=== PATIENT | female | born 1985 | race African-American/Black ===

== ENCOUNTER 2024-03-21 19:37 | Emergency (ER) | payer SELFPAY ==
[2024-03-21 19:52] VITALS: BP 192/117; PULSE 74; RESP 16; TEMP 36.8; O2SAT 99; BMI 158.6
--- NOTE | 2024-03-21 20:02 | CRLHL7_ITS ---
For Patients: As a result of the Cures Act, medical imaging exams and procedure reports are released immediately into your electronic medical record. You may view this report before your referring provider. If you have questions, please contact your health care provider. INDICATION: Spotting. LMP 02/03/2024. COMPARISON: None. TECHNIQUE: Real-time huizar-scale imaging of the pelvis was performed. FINDINGS: Sonographic imaging demonstrates a single living intrauterine gestation. The embryo has a regular cardiac rate measuring 120 beats per minute. The embryo`s crown-rump length measures 0.6 cm which corresponds to a gestational age of 6 weeks 2 days with sonographic due date 11/12/2024. There is a normal-appearing yolk sac. The placenta has not yet developed. There is a 1.6 x 0.9 x 0.9 cm subchorionic hemorrhage in the right upper uterus. The uterus measures 11.5 x 7.2 x 7.4 cm. The cervix is closed. The right ovary was not visualized. The left ovary measures 3.3 x 2.3 x 2.6 cm. No free fluid in the pelvic cul-de-sac. IMPRESSION: 1. Single living intrauterine gestation corresponding to an ultrasound gestational age of 6 weeks 2 days with sonographic due date 11/12/2024. 2. The clinical gestational age by LMP is 6 weeks 5 days. 3. Small subchorionic hemorrhage. Dictated by Indy Dominguez MD @ 03/21/2024 10:25:30 PM (Electronically Signed)
[2024-03-21 20:09] VITALS: BP 164/100; PULSE 70; RESP 16; O2SAT 100
[2024-03-21 20:16] LABS: Appearance Urine Clear (Clear); Bilirubin Urine Negative (Negative); Blood Urine Negative (Negative); Color Urine Yellow (Yellow); Glucose Urine Negative (Negative); Ketones Urine Negative (Negative); Leukocyte Esterase Urine Negative (Negative); Nitrite Urine Negative (Negative); Protein Urine Negative (Negative); Specific Gravity Urine 1.015 (1.000-1.030); Urobilinogen Urine 0.2 (0.2-1.0)
--- NOTE | 2024-03-21 20:23 | ED.GENADULT ---
HPI - General Adult General Date Seen: 03/21/24 Chief complaint: Vaginal Bleeding Stated complaint: less than 2 mos , bleeding, cramping Time Seen by Provider: 03/21/24 19:52 Source: patient Mode of arrival: ambulatory Limitations: no limitations History of Present Illness HPI narrative: Patient is a 39-year-old woman here with her for evaluation of spotting during . She says she has an LMP of February 02, she is a with history of 1 miscarriage, denies other complications. Her prior pregnancies have been in [facility], she immigrated here to join her a couple of months ago. She has not yet had any care for this but plans to come here to [place], her works here. She noted some spotting today, she has not had significant cramping. She says she has noticed some blood with wiping. No heavier bleeding. No urinary symptoms. Related Data Allergies Allergy/AdvReac Type Severity Reaction Status Date / Time No Known Drug Allergies Allergy Verified 03/21/24 19:58 Review of Systems Status of ROS: Reports: 6 or more systems reviewed and unremarkable except as noted in History and below [facility] Social History Do you use any of these nicotine containing products: None How often do you have a drink containing alcohol: never AUDIT-C Alcohol total score: 0 Non-prescribed substance use: denies use Exam Narrative: Exam Narrative: Vital signs reviewed In general, alert, nontoxic Head: Normocephalic, atraumatic. Eyes: Sclera clear. Pupils equal and reactive. ENT: Mucous membranes moist. Neck: Supple without adenopathy. Heart: Regular rate and rhythm without murmur. Lungs: Clear. No increased work of breathing, crackles or wheezes. Abdomen: Soft, nontender to palpation. Extremities: Well perfused, pulses intact. No significant edema. Neurologic: Alert, conversant. Speech fluent, face symmetric. Moves all extremities equally. Skin: Warm, dry well perfused. Affect: Normal. Const: Vital Signs, click to edit/add: Vital Signs - 24 hr 03/21/24 19:52 03/21/24 20:09 03/21/24 21:16 Temperature 98.3 F Pulse Rate [Right Pulse Oximeter] 74 70 70 Respiratory Rate 16 16 Blood Pressure [Ri ght Upper Arm] 192/117 H 164/100 H 150/90 H Pulse Oximetry 99 100 Oxygen Delivery Me thod Room Air Room Air Documenting provider has reviewed patient's vital signs: yes Course Course ED Course: CBC, quant HCG and type and screen is ordered. UA pending as well. Will do a pelvic ultrasound and evaluate to determine whether she has an intrauterine . Other considerations would be threatened or inevitable miscarriage, ectopic , molar , urinary tract infection. Labs are notable for a blood type of A positive, normal hemoglobin, a negative UA. Quantitative hCG is still pending, but she did have an ultrasound which is read preliminarily to show an IUP with good cardiac activity, and a small subchorionic hemorrhage. Her blood pressure remained somewhat elevated, 150/90, she does have a history of hypertension and is maintained on amlodipine. Her says that is not normally this high. For now I recommend that she continue her amlodipine but this should be followed at clinic to see if medication needs to be adjusted. Quant HCG 34,000, final radiology read concurs with the preliminary read. Patient discharged with outpatient follow-up, return for heavier bleeding, worsening abdominal pain, fevers or other new symptoms. Vital Signs Vital signs: Initial Vital Signs Temperature 98.3 F 03/21/24 19:52 Temperature Source Temporal Artery Scan 03/21/24 19:52 Pulse Rate 74 03/21/24 19:52 Pulse Rhythm Regular 03/21/24 19:52 Pulse Strength 3+ Normal 03/21/24 19:52 Respiratory Rate 16 03/21/24 19:52 Blood Pressure 192/117 H 03/21/24 19:52 Blood Pressure Mean 142 H 03/21/24 19:52 Blood Pressure Position Sitting 03/21/24 19:52 Pulse Oximetry 99 03/21/24 19:52 Oxygen Delivery Method Room Air 03/21/24 19:52 Vital Signs Temperature 98.3 F 03/21/24 19:52 Pulse Rate 74 03/21/24 19:52 Respiratory Rate 16 03/21/24 19:52 Blood Pressure 192/117 H 03/21/24 19:52 Pulse Oximetry 99 03/21/24 19:52 Oxygen Delivery Method Room Air 03/21/24 19:52 Temperature 98.3 F 03/21/24 19:52 Pulse Rate 70 03/21/24 21:16 Respiratory Rate 16 03/21/24 20:09 Blood Pressure 150/90 H 03/21/24 21:16 Pulse Oximetry 100 03/21/24 20:09 Oxygen Delivery Method Room Air 03/21/24 20:09 Medical Decision Making Lab Data Labs: Lab Results 03/21/24 03/21/24 Range/Units 19:58 20:18 WBC 5.22 (4.50-11.00) K/uL RBC 4.79 (4.00-5.20) m/uL Hgb 12.4 (12.0-16.0) gm/dL Hct 39.3 (33.0-51.0) % MCV 82 (80-100) fL MCH 26 (26-34) pg MCHC 32 (32-36) gm/dL RDW Coeff of Kumar 14.6 (11.5-15.5) % Plt Count 185 (140-440) K/uL Neut % (Auto) 40.7 L (42.0-72.0) % Lymph % (Auto) 45.4 H (20-44) % Randall % (Auto) 12.1 H (0.0-11.0) % Eos % (Auto) 1.0 (0.0-7.0) % Baso % (Auto) 0.6 (0.0-3.0) % Neut # (Auto) 2.10 (1.7-7.0) K/uL Lymph # (Auto) 2.40 (0.90-2.90) K/uL Randall # (Auto) 0.60 (0.00-0.90) K/UL Eos # (Auto) 0.05 (0.00-0.50) K/uL Baso # (Auto) 0.03 (0.00-0.30) K/uL Abs Immat Gran (auto) 0.01 (0.00-0.30) K/uL Imm/Tot Granulo (auto) 0.2 % HCG, Quant 27085.00 mIU/mL Urine Color Yellow (Yellow) Urine Appearance Clear (Clear) Urine pH 7.0 (5.0-8.5) Ur Specific [place] 1.015 (1.000-1.030) Urine Protein Negative (Negative) Urine Glucose (UA) Negative (Negative) Urine Ketones Negative (Negative) Urine Blood Negative (Negative) Urine Nitrite Negative (Negative) Urine Bilirubin Negative (Negative) Urine Urobilinogen 0.2 (0.2-1.0) Ur Leukocyte Esterase Negative (Negative) Urine RBC 0-2 (0-2) Urine WBC 0-2 (0-5) Ur Squamous Epith Cells None (None-Few) Urine Bacteria None (None) Blood Type A Positive Antibody Screen NEGATIVE Imaging Data Transvaginal ultrasound: Attestation: I have reviewed the pertinent imaging results. Radiologist's impression: [address] [address] Diagnostic Imaging Report Patient: Diana Shelton MR#: [id number] : 1985 Acct:[id number] Loc: ED Service Date: 03/21/[address]: Ordering Physician: Naomi Dumont M.D. Date of Service: 03/21/24 Procedure(s): US OB transvaginal Accession Number(s): [id number] cc: Naomi Dumont M.D.; Provider,Not a Local~ For Patients: As a result of the Cures Act, medical imaging exams and procedure reports are released immediately into your electronic medical record. You may view this report before your referring provider. If you have questions, please contact your health care provider. INDICATION: Spotting. LMP 02/03/2024. COMPARISON: None. TECHNIQUE: Real-time huizar-scale imaging of the pelvis was performed. FINDINGS: Sonographic imaging demonstrates a single living intrauterine gestation. The embryo has a regular cardiac rate measuring 120 beats per minute. The embryo`s crown-rump length measures 0.6 cm which corresponds to a gestational age of 6 weeks 2 days with sonographic due date 11/12/2024. There is a normal-appearing yolk sac. The placenta has not yet developed. There is a 1.6 x 0.9 x 0.9 cm subchorionic hemorrhage in the right upper uterus. The uterus measures 11.5 x 7.2 x 7.4 cm. The cervix is closed. The right ovary was not visualized. The left ovary measures 3.3 x 2.3 x 2.6 cm. No free fluid in the pelvic cul-de-sac. IMPRESSION: 1. Single living intrauterine gestation corresponding to an ultrasound gestational age of 6 weeks 2 days with sonographic due date 11/12/2024. 2. The clinical gestational age by LMP is 6 weeks 5 days. 3. Small subchorionic hemorrhage. Dictated by Indy Dominguez MD @ 03/21/2024 10:25:30 PM Discharge Plan Discharge Clinical Impression: Bleeding in early Patient Disposition: Home, Self-Care Condition: Stable Instructions: Subchorionic Hemorrhage (ED) Additional Instructions: Your ultrasound is normal for this stage of . I would recommend that you follow-up in [facility] next week for recheck. Return any time for heavy bleeding, significant abdominal pain or other worsening symptoms. Your blood pressure is elevated here tonight, for now continue your amlodipine, recheck in clinic next week. [phone] to schedule. Activity Level: No Restrictions Discharge Diet: Regular Follow Up/Referrals: Provider,Not a Local [Primary Care Provider] - Stand Alone Forms: [employer] Info Instructions
[2024-03-21 20:27] LABS: Basophils Absolute Auto 0.03 K/uL (0.00-0.30); Basophils Percent Auto 0.6 % (0.0-3.0); Eosinophils Absolute Auto 0.05 K/uL (0.00-0.50); Hematocrit 39.3 % (33.0-51.0); Hemoglobin* 12.4 gm/dL (12.0-16.0); Immature Granulocytes Abs Auto 0.01 K/uL (0.00-0.30); Immature Granulocytes Pct Auto 0.2 %; Lymphocytes Percent Auto 45.4 % (20-44); Mean Corpuscular HGB Conc 32 gm/dL (32-36); Mean Corpuscular Hemoglobin 26 pg (26-34); Mean Corpuscular Volume 82 fL (80-100); Monocytes Percent Auto 12.1 % (0.0-11.0); Neutrophils Percent Auto 40.7 % (42.0-72.0); Platelet Count* 185 K/uL (140-440); RDW Coefficient of Variation % 14.6 % (11.5-15.5); Red Blood Count 4.79 m/uL (4.00-5.20); White Blood Count* 5.22 K/uL (4.50-11.00)
[2024-03-21 20:35] LABS: RBC Urine 0-2 (0-2); WBC Urine 0-2 (0-5)
[2024-03-21 20:41] LABS: Slide Review Reflex No
[2024-03-21 21:16] VITALS: BP 150/90; PULSE 70
== END 2024-03-21 21:33 | disposition home or self-care (01) ==
PROVIDERS: Emergency Provider Emergency Medicine
DX: O20.9 Hemorrhage in early pregnancy, unspecified (principal)
CPT/HCPCS: 36415; 76817; 81001; 84702; 85025; 86850; 86900; 86901; 99283; 99284

== ENCOUNTER 2024-05-03 07:10 | Outpatient (CLI) | payer OTHER, SELFPAY ==
--- NOTE | 2024-05-03 07:15 | CRLHL7_ITS ---
For Patients: As a result of the Century Cures Act, medical imaging exams and procedure reports are released immediately into your electronic medical record. You may view this report before your referring provider. If you have questions, please contact your health care provider. INDICATION: Follow-up viability COMPARISON: 03/21/2024 TECHNIQUE: Real-time huizar-scale imaging of the pelvis was performed. FINDINGS: Sonographic imaging demonstrates a single living intrauterine gestation. The embryo demonstrates a regular cardiac rate measuring 157 beats per minute. The embryo`s crown-rump length measurement of 7.2 cm corresponds to a gestational age of 13 weeks 2 days with a sonographic due date of 11/06/2024. The yolk sac is not visualized. There are no gross abnormalities noted within the embryo at this early state of development. The gestational sac has a normal appearance. There is no evidence of a perigestational hemorrhage. The amount of fluid within the sac appears appropriate for gestational age. The cervix is closed. The myometrium appears normal. Simple cyst right ovary measures 4.8 x 4.2 x 4.9 cm. Normal left ovary. There are no suspicious fluid collections noted in the cul-de-sac. IMPRESSION: Single living intrauterine measuring 13 weeks 2 days and sonographic due date 11/06/2024. Simple right ovarian cyst measures 4.8 x 4.2 x 4.9 cm. Dictated by Harvey Hoover MD @ 05/03/2024 1:23:47 PM (Electronically Signed)
== END 2024-05-03 07:11 | disposition home or self-care (01) ==
LOC: US 07:12
PROVIDERS: Visit Provider Advanced Practice Midwife
DX: Z34.91 Encounter for supervision of normal pregnancy, unspecified, first trimester (principal); O34.81 Maternal care for other abnormalities of pelvic organs, first trimester; N83.291 Other ovarian cyst, right side; Z3A.13 13 weeks gestation of pregnancy
CPT/HCPCS: 76801; 82565; 82570; 83021; 84156; 84450; 84460; 84520; 84550; 86592; 86703; 86704; 86706; 86762; 86787; 86803; 86850; 86900; 86901; 87086; 87340; 87491; 87591; 87624; 88142

== ENCOUNTER 2024-05-03 08:21 | Outpatient (CLI) | payer OTHER, SELFPAY ==
[2024-05-03 15:30] LABS: Chlamydia DNA Amplified* NOT DETECTED (No Detected); GC DNA Amplified* NOT DETECTED (No Detected)
[2024-05-05 09:20] LABS: HPV Source Cervical; HPV, High Risk by TMA Not Detected
== END 2024-05-03 08:22 | disposition home or self-care (01) ==
PROVIDERS: Visit Provider Advanced Practice Midwife
DX: O09.521 Supervision of elderly multigravida, first trimester (principal); O10.911 Unspecified pre-existing hypertension complicating pregnancy, first trimester; Z3A.12 12 weeks gestation of pregnancy; Z12.4 Encounter for screening for malignant neoplasm of cervix
CPT/HCPCS: 82565; 82570; 83020; 83021; 84156; 84450; 84460; 84520; 84550; 85660; 86592; 86703; 86704; 86706; 86762; 86787; 86803; 86850; 86900; 86901; 87086; 87340; 87491; 87591; 87624; 87625; 88141; 88142

== ENCOUNTER 2024-05-05 10:49 | Outpatient (CLI) | payer OTHER, SELFPAY | END 2024-05-05 10:50 | disposition home or self-care (01) | LOC: NFLDREF 05-14 16:23 | PROVIDERS: Visit Provider Advanced Practice Midwife | DX: O09.522 Supervision of elderly multigravida, second trimester (principal) | CPT/HCPCS: 82570; 84156 ==

== ENCOUNTER 2024-06-14 10:50 | Outpatient (CLI) | payer OTHER, SELFPAY | END 2024-06-14 10:51 | disposition home or self-care (01) | LOC: US 10:52 | PROVIDERS: Visit Provider Advanced Practice Midwife | DX: O10.912 Unspecified pre-existing hypertension complicating pregnancy, second trimester (principal); O09.522 Supervision of elderly multigravida, second trimester; Z3A.18 18 weeks gestation of pregnancy | CPT/HCPCS: 76811 ==

== ENCOUNTER 2024-08-23 08:12 | Outpatient (CLI) | payer OTHER, SELFPAY | END 2024-08-23 08:13 | disposition home or self-care (01) | LOC: NFLDREF 08-25 23:51 | PROVIDERS: Visit Provider Obstetrics & Gynecology | DX: O09.523 Supervision of elderly multigravida, third trimester (principal); Z3A.28 28 weeks gestation of pregnancy | CPT/HCPCS: 86592; 86850 ==

== ENCOUNTER 2024-08-23 08:40 | Outpatient (CLI) | payer OTHER, SELFPAY ==
--- NOTE | 2024-08-23 08:15 | CRLHL7_ITS ---
For Patients: As a result of the Cures Act, medical imaging exams and procedure reports are released immediately into your electronic medical record. You may view this report before your referring provider. If you have questions, please contact your health care provider. OBSTETRICAL ULTRASOUND ??? FOLLOW-UP, 08/23/2024 INDICATION: Growth. Advanced maternal age. CLINICAL HISTORY: LMP: 02/03/2024 LUIZ by LMP: 11/09/2024 Gestational Age: 28 weeks 6 days COMPARISON: 06/14/2024, 05/03/2024, 03/21/2024. TECHNIQUE: Real-time huizar-scale transabdominal imaging of the fetus was performed. FINDINGS: Fetus: Single Cervix: Visualized, 3.2 cm positioning: Vertex Amniotic Fluid: 4.5 cm SDP Placenta technique: Transabdominal Placenta position: Posterior heart rate: 141 bpm BIOMETRY: BPD: 7.2 cm, 29 weeks 0 days, 42.7% HC: 27.5 cm, 30 weeks 0 days, 52.2% AC: 25.4 cm, 29 weeks 4 days, 65.4% FL: 5.2 cm, 27 weeks 6 days, 11.4% FL/AC Ratio: 20.6% HC/AC ratio: 1.1 EFW: 1319 grams; 2 lbs. 15 oz. age by this ultrasound: 29 weeks 1 day LUIZ by this ultrasound: 11/07/2024 Percentile by LUIZ: 42.1% IMPRESSION: 1. Sonographic gestational age 29 weeks 1 day and sonographic due date 11/07/2024. Good correlation with dates. Normal interval growth. 2. Estimated weight is 42nd percentile. Abdominal circumference is 65th percentile. HARVEY HUANG M.D. Diagnostic Radiologist [email or web address] Transcribed: 2:[address]/Dictated by: Harvey Huang MD @ 08/23/2024 2:26:00 PM (Electronically Signed)
== END 2024-08-23 08:41 | disposition home or self-care (01) ==
LOC: US 08:41
PROVIDERS: Visit Provider Advanced Practice Midwife
DX: O09.523 Supervision of elderly multigravida, third trimester (principal); O10.913 Unspecified pre-existing hypertension complicating pregnancy, third trimester; Z3A.28 28 weeks gestation of pregnancy
CPT/HCPCS: 76816

== ENCOUNTER 2024-09-20 08:16 | Outpatient (CLI) | payer OTHER, SELFPAY ==
--- NOTE | 2024-09-20 08:15 | CRLHL7_ITS ---
For Patients: As a result of the Cures Act, medical imaging exams and procedure reports are released immediately into your electronic medical record. You may view this report before your referring provider. If you have questions, please contact your health care provider. OB ULTRASOUND LUIZ by LMP: 11/09/2024. GA: 32 w, 6 d. Single. Comparison: 08/23/2024. INDICATION: Pre-existing HTN. TECHNIQUE: Real time grayscale imaging of the fetus was performed. Transabdominal. CERVIX: Not visualized. POSITIONING: Vertex. AMNIOTIC FLUID: 4.2 cm. SDP (N: greater than 2 x 1 cm) BIOPHYSICAL PROFILE: 2: Gross body movements 2: tone 2: Respiratory activity 2: Amniotic fluid SDP (N: greater than 2 x 1 cm) 8/8: Total score PLACENTA: Technique: Transabdominal. PLACENTA POSITION: Posterior. DOPPLER: heart rate: 165 bpm. BIOMETRY: BPD: 8.1 cm. 32 w, 4 d, 35 percent. HC: 31.0 cm. 34 w, 4 d, 60 percent. AC: 28.9 cm. 32 w, 6 d, 52 percent. FL: 5.9 cm. 30 w, 5 d, <3 percent. FL/AC ratio: 20.35 percent. HC/AC ratio: 1.07. EFW: 1965 g. Weight: 4 lbs, 5 oz. age by this US: 32 w, 5 d. LUIZ by this US: 11/10/2024. Percentile by LUIZ: 27 percent. IMPRESSION: 1. Normal biophysical profile score 8/8. 2. Sonographic gestational age 32 weeks 5 days and sonographic due date 11/10/2024. Good correlation with dates. Normal interval growth. 3. Estimated weight 27th percentile. Abdominal circumference 52nd percentile. 4. Femur length less than 3rd percentile. Harvey Hoover M.D. Diagnostic Radiologist [email or web address] WANDA/sanya segundo/Dictated by: Harvey Hoover MD @ 09/20/2024 9:25:00 AM (Electronically Signed)
== END 2024-09-20 08:17 | disposition home or self-care (01) ==
LOC: US 08:17
PROVIDERS: Visit Provider Advanced Practice Midwife
DX: O10.913 Unspecified pre-existing hypertension complicating pregnancy, third trimester (principal); Z3A.32 32 weeks gestation of pregnancy
CPT/HCPCS: 76816; 76819

== ENCOUNTER 2024-09-20 08:57 | Outpatient (CLI) | payer OTHER, SELFPAY | END 2024-09-20 08:58 | disposition home or self-care (01) | LOC: NFLDREF 09:00 | PROVIDERS: Visit Provider Obstetrics & Gynecology | DX: O10.913 Unspecified pre-existing hypertension complicating pregnancy, third trimester (principal); Z3A.32 32 weeks gestation of pregnancy | CPT/HCPCS: 82565; 82570; 84156; 84450; 84460 ==

== ENCOUNTER 2024-09-25 15:00 | Outpatient (CLI) | payer OTHER, SELFPAY | END 2024-09-25 15:01 | disposition home or self-care (01) | LOC: NFLDREF 09-29 04:11 | PROVIDERS: Visit Provider Obstetrics & Gynecology | DX: O10.913 Unspecified pre-existing hypertension complicating pregnancy, third trimester (principal); O99.013 Anemia complicating pregnancy, third trimester; D64.9 Anemia, unspecified; Z3A.33 33 weeks gestation of pregnancy | CPT/HCPCS: 82565; 82570; 82728; 84156; 84450; 84460 ==

== ENCOUNTER 2024-09-27 13:00 | Outpatient (CLI) | payer OTHER, SELFPAY ==
--- NOTE | 2024-09-27 13:00 | CRLHL7_ITS ---
For Patients: As a result of the Century Cures Act, medical imaging exams and procedure reports are released immediately into your electronic medical record. You may view this report before your referring provider. If you have questions, please contact your health care provider. INDICATION: Pre-existing hypertension TECHNIQUE: Ultrasound OB pelvis transabdominal. Real-time huizar-scale imaging of the fetus was performed with color Doppler and spectral Doppler analysis of the umbilical artery without stress testing. COMPARISON: 09/20/2024 FINDINGS: Sonographic imaging demonstrates a single living intrauterine gestation. Fetus demonstrates a regular cardiac rate of 150 beats per minute. Fetus has a cephalic orientation. The placenta lies fundal. Amniotic fluid volume appears normal with a MVP of 4.5 cm. breathing movements, motion, and tone were all observed. IMPRESSION: Single viable intrauterine with a biophysical profile 12/01. Dictated by Naresh Acharya MD @ 09/27/2024 2:11:44 PM (Electronically Signed)
== END 2024-09-27 13:01 | disposition home or self-care (01) ==
LOC: US 13:01
PROVIDERS: Visit Provider Advanced Practice Midwife
DX: O10.919 Unspecified pre-existing hypertension complicating pregnancy, unspecified trimester (principal)
CPT/HCPCS: 76819

== ENCOUNTER 2024-10-04 08:08 | Outpatient (CLI) | payer OTHER, SELFPAY ==
--- NOTE | 2024-10-04 08:15 | CRLHL7_ITS ---
For Patients: As a result of the Century Cures Act, medical imaging exams and procedure reports are released immediately into your electronic medical record. You may view this report before your referring provider. If you have questions, please contact your health care provider. INDICATION: Pre-existing hypertension TECHNIQUE: Ultrasound OB pelvis transabdominal. Real-time huizar-scale imaging of the fetus was performed with color Doppler and spectral Doppler analysis of the umbilical artery without stress testing. COMPARISON: 09/27/2024 FINDINGS: Sonographic imaging demonstrates a single living intrauterine gestation. Fetus demonstrates a regular cardiac rate of 142 beats per minute. Fetus has a fundal orientation. The placenta lies anterior. Amniotic fluid volume appears normal with a MVP of 4.2 cm. breathing movements, motion, and tone were all observed. IMPRESSION: Single viable intrauterine with a biophysical profile 12/01. Dictated by Naresh Acharya MD @ 10/04/2024 9:03:43 AM (Electronically Signed)
== END 2024-10-04 08:09 | disposition home or self-care (01) ==
PROVIDERS: Visit Provider Advanced Practice Midwife
DX: O10.919 Unspecified pre-existing hypertension complicating pregnancy, unspecified trimester (principal)
CPT/HCPCS: 76819

== ENCOUNTER 2024-10-04 08:39 | Outpatient (CLI) | payer OTHER, SELFPAY | END 2024-10-04 08:40 | disposition home or self-care (01) | LOC: NFLDREF 10-05 20:00 | PROVIDERS: Visit Provider Obstetrics & Gynecology | DX: O10.013 Pre-existing essential hypertension complicating pregnancy, third trimester (principal); Z3A.34 34 weeks gestation of pregnancy | CPT/HCPCS: 82565; 82570; 84156; 84450; 84460 ==

== ENCOUNTER 2024-10-11 08:27 | Outpatient (CLI) | payer OTHER, SELFPAY ==
--- NOTE | 2024-10-11 08:15 | CRLHL7_ITS ---
For Patients: As a result of the Cures Act, medical imaging exams and procedure reports are released immediately into your electronic medical record. You may view this report before your referring provider. If you have questions, please contact your health care provider. OB ULTRASOUND LUIZ by LMP: 11/09/2024. GA: 35 w, 6 d. Single. Comparison: 10/04/2024, 09/27/2024, 09/20/2024. INDICATION: Pre-existing HTN. TECHNIQUE: Real time grayscale imaging of the fetus was performed. Transabdominal. CERVIX: Not visualized. POSITIONING: Vertex. AMNIOTIC FLUID: 2.6 cm. SDP (N: greater than 2 x 1 cm) BIOPHYSICAL PROFILE: 2: Gross body movements 2: tone 2: Respiratory activity 2: Amniotic fluid SDP (N: greater than 2 x 1 cm) 8/8: Total score PLACENTA: Technique: Transabdominal. PLACENTA POSITION: Anterior. DOPPLER: heart rate: 141 bpm. IMPRESSION: Normal biophysical profile score 8/8. Harvey Hoover M.D. Diagnostic Radiologist [email or web address] WANDA/sanya segundo/Dictated by: Harvey Hoover MD @ 10/11/2024 9:37:00 AM (Electronically Signed)
== END 2024-10-11 08:28 | disposition home or self-care (01) ==
LOC: US 08:28
PROVIDERS: Visit Provider Advanced Practice Midwife
DX: O10.913 Unspecified pre-existing hypertension complicating pregnancy, third trimester (principal); Z3A.35 35 weeks gestation of pregnancy
CPT/HCPCS: 76819

== ENCOUNTER 2024-10-11 09:41 | Outpatient (CLI) | payer OTHER, SELFPAY ==
[2024-10-12 12:42] LABS: Strep B DNA Probe Negative (Negative)
[2024-10-12 14:03] LABS: Strep B Susceptibility Needed? No
== END 2024-10-11 09:42 | disposition home or self-care (01) ==
LOC: NFLDREF 09:41
PROVIDERS: Visit Provider Obstetrics & Gynecology
DX: Z34.93 Encounter for supervision of normal pregnancy, unspecified, third trimester (principal); Z3A.35 35 weeks gestation of pregnancy
CPT/HCPCS: 82565; 82570; 84156; 84450; 84460; 87081; 87653

== ENCOUNTER 2024-10-17 13:53 | Outpatient (CLI) | payer OTHER, SELFPAY | END 2024-10-17 13:54 | disposition home or self-care (01) | LOC: NFLDREF 10-20 14:13 | PROVIDERS: Visit Provider Obstetrics & Gynecology | DX: O10.913 Unspecified pre-existing hypertension complicating pregnancy, third trimester (principal); Z3A.36 36 weeks gestation of pregnancy | CPT/HCPCS: 82565; 82570; 84156; 84450; 84460 ==

== ENCOUNTER 2024-10-18 13:08 | Outpatient (CLI) | payer OTHER, SELFPAY | END 2024-10-18 13:09 | disposition home or self-care (01) | LOC: NFLDREF 10-23 09:20 | PROVIDERS: Visit Provider Obstetrics & Gynecology | DX: O10.913 Unspecified pre-existing hypertension complicating pregnancy, third trimester (principal); Z3A.36 36 weeks gestation of pregnancy | CPT/HCPCS: 82565; 82570; 84156; 84450; 84460 ==

== ENCOUNTER 2024-10-18 13:11 | Outpatient (CLI) | payer OTHER, SELFPAY ==
--- NOTE | 2024-10-18 13:00 | US_ITS ---
Patient: ABDIAS SHANNON Facility:?[facility] Patient ID:?[id number] Patient ID:?[id number]. Site :?1985 Study:?US-OB Pelvis OB BPP W/ F/U GROWTH-10/18/2024 1:43:26 PM Ordering Physician:Anuja Betancourt Final Report: OBSTETRICAL ULTRASOUND ? FOLLOW-UP, 10/18/2024 INDICATION: Preexisting hypertension. CLINICAL HISTORY: LMP: 02/03/2024 LUIZ by LMP: 11/09/2024 Gestational Age: 36 weeks 6 days PREVIOUS ULTRASOUND: 10/11/2024 TECHNIQUE: Real-time huizar-scale transabdominal imaging of the fetus was performed. FINDINGS: Fetus: Single Cervix: Not visualized positioning: Vertex Amniotic Fluid: 6.1 cm SDP BIOPHYSICAL PROFILE: Gross body movements: 2 tone: 2 Respiratory activity: 2 Amniotic fluid SDP: 2 Total score: 8 Placenta technique: Transabdominal Placenta position: Posterior heart rate: 149 bpm BIOMETRY: BPD: 8.8 cm, 35 weeks 5 days, 30% HC: 33.1 cm, 37 weeks 5 days, 43% AC: 32.5 cm, 36 weeks 3 days, 49% FL: 6.6 cm, 34 weeks 0 days, <3% FL/AC Ratio: 20.37% HC/AC ratio: 1.02 EFW: 2779 grams; 6 lbs. 2 oz. age by this ultrasound: 36 weeks 0 days LUIZ by this ultrasound: 11/15/2024 Percentile by LUIZ: 28% IMPRESSION: 1. Normal biophysical profile score of 8/8. 2. Sonographic gestational age 36 weeks 0 days and sonographic due date 11/15/2024. Sonographic age is 6 days behind the clinical age. 3. Estimated weight is 28th percentile. Abdominal circumference is 49th percentile. Femur length is less than 3rd percentile. ERIK HUANG M.D. Diagnostic Radiologist [email or web address] WANDA/connie D& Transcribed: 5:[address]/Dictated by: Erik Huang MD @ 10/18/2024 2:42:00 PM Signed by:?Erik Huang MD @10/19/2024 6:45:43 AM (Electronic Signature)
== END 2024-10-18 13:12 | disposition home or self-care (01) ==
LOC: US 13:11
PROVIDERS: Visit Provider Advanced Practice Midwife
DX: O10.913 Unspecified pre-existing hypertension complicating pregnancy, third trimester (principal); O09.523 Supervision of elderly multigravida, third trimester; Z3A.36 36 weeks gestation of pregnancy
CPT/HCPCS: 76816; 76819; 82565; 82570; 84156; 84450; 84460

== ENCOUNTER 2024-10-24 13:18 | Outpatient (RCR) | payer OTHER, SELFPAY ==
[2024-10-24 13:27] VITALS: BP 132/79; PULSE 95; TEMP 36.8; O2SAT 100
[2024-10-24] MEDS: IRON DEXTRAN COMPLEX 25 MG in 0.9 % SODIUM CHLORIDE 100 ml 100 ML 402 MG IVPB (13:52)
[2024-10-24 14:07] VITALS: BP 107/69; PULSE 83; RESP 16; TEMP 36.6; O2SAT 100
[2024-10-24 14:25] VITALS: BP 83/58; PULSE 92; RESP 16; TEMP 36.5; O2SAT 99
[2024-10-24] MEDS: IRON DEXTRAN COMPLEX 975 MG in 0.9 % SODIUM CHLORIDE 250 ml 250 ML 270 MG IVPB (14:50)
[2024-10-24 15:53] VITALS: BP 108/68; PULSE 85; RESP 16; TEMP 36.6; O2SAT 100
[2024-10-24 16:30] VITALS: BP 117/72; PULSE 93
--- NOTE | 2024-10-24 16:43 | ONC.NURNOTE ---
Pt tolerated INfed today without difficulty. BP did trend down throughout infusion. 30 min after Infed, BP 83/58, HR 92. Pt denies dizziness, lightheadedness. Pt then ambulated to BR without difficulty and BP then 117/72, HR 93. [employer] called OB dept with update and spoke to Dr. Crabtree who stated pt could go home as long as she felt okay and to stay hydrated. Pt verbalized understanding of plan of care.
== END 2025-04-22 23:59 | disposition home or self-care (01) ==
LOC: CCIC 13:18
PROVIDERS: PCP Orthopaedic Surgery; Visit Provider Clinical Nurse Specialist
DX: O99.013 Anemia complicating pregnancy, third trimester (principal)
CPT/HCPCS: 96365; J1750; J7050

== ENCOUNTER 2024-10-25 12:44 | Outpatient (CLI) | payer OTHER, SELFPAY | END 2024-10-25 12:45 | disposition home or self-care (01) | LOC: NFLDREF 10-29 06:49 | PROVIDERS: PCP Orthopaedic Surgery; Visit Provider Obstetrics & Gynecology | DX: O10.913 Unspecified pre-existing hypertension complicating pregnancy, third trimester (principal); Z3A.37 37 weeks gestation of pregnancy | CPT/HCPCS: 82565; 82570; 84156; 84450; 84460 ==

== ENCOUNTER 2024-10-25 12:51 | Outpatient (CLI) | payer OTHER, SELFPAY ==
--- NOTE | 2024-10-25 13:00 | CRLHL7_ITS ---
For Patients: As a result of the Cures Act, medical imaging exams and procedure reports are released immediately into your electronic medical record. You may view this report before your referring provider. If you have questions, please contact your health care provider. OB ULTRASOUND BIOPHYSICAL PROFILE, 10/25/2024 CLINICAL HISTORY: Pre-existing HTN. COMPARISON: 10/18/2024, 10/11/2024, 10/04/2024. TECHNIQUE: Real time huizar scale imaging of the fetus was performed. Transabdominal imaging performed. FINDINGS: LMP: 02/03/2024. LUIZ by LMP: 11/09/2024. GA: 37 weeks 6 days. Gestation: Single. Cervix: Not visualized. Positioning: Vertex. Amniotic Fluid: 5.4 cm SDP. Biophysical Profile: Gross Body Movements: 2 Tone: 2 Respiratory Activity: 2 Amniotic Fluid: 2 Total Score: 8 Placenta: Technique: TA. Placenta Position: Fundal, left wall. Dopplers: Heart Rate: 131 bpm. IMPRESSION: 1. Normal biophysical profile 12/01. 2. Likely incidental slightly echogenic bowel. This is of doubtful significance at this late gestational age. Harvey Hoover M.D. Diagnostic Radiologist [email or web address] Transcribed: 3:15 [address]/Dictated by: Harvey Hoover MD @ 10/25/2024 2:34:00 PM (Electronically Signed)
== END 2024-10-25 12:52 | disposition home or self-care (01) ==
LOC: US 12:51
PROVIDERS: PCP Orthopaedic Surgery; Visit Provider Advanced Practice Midwife
DX: O10.913 Unspecified pre-existing hypertension complicating pregnancy, third trimester (principal); Z3A.37 37 weeks gestation of pregnancy
CPT/HCPCS: 76819

== ENCOUNTER 2024-11-01 08:18 | Outpatient (CLI) | payer OTHER, SELFPAY | END 2024-11-01 08:19 | disposition home or self-care (01) | LOC: NFLDREF 11-03 13:14 | PROVIDERS: PCP Orthopaedic Surgery; Visit Provider Obstetrics & Gynecology | DX: O10.913 Unspecified pre-existing hypertension complicating pregnancy, third trimester (principal); Z3A.38 38 weeks gestation of pregnancy | CPT/HCPCS: 82565; 82570; 84156; 84450; 84460 ==

== ENCOUNTER 2024-11-01 08:23 | Outpatient (CLI) | payer OTHER, SELFPAY ==
--- NOTE | 2024-11-01 08:15 | CRLHL7_ITS ---
For Patients: As a result of the Cures Act, medical imaging exams and procedure reports are released immediately into your electronic medical record. You may view this report before your referring provider. If you have questions, please contact your health care provider. OB ULTRASOUND LUIZ by LMP: 11/09/2024. GA: 38 w, 6 d. Single. Comparison: Ultrasound 10/25/2024, 10/18/2024, 10/11/2024. INDICATION: Pre-existing HTN. TECHNIQUE: Real time grayscale imaging of the fetus was performed. Transabdominal. CERVIX: Not visualized. POSITIONING: Vertex. AMNIOTIC FLUID: 6.3 cm. SDP (N: greater than 2 x 1 cm) BIOPHYSICAL PROFILE: 2: Gross body movements 2: tone 2: Respiratory activity 2: Amniotic fluid SDP (N: greater than 2 x 1 cm) 8/8: Total score PLACENTA: Technique: Transabdominal. PLACENTA POSITION: Fundal. DOPPLER: heart rate: 167 bpm. IMPRESSION: Normal biophysical profile score 8/8. Harvey Hoover M.D. Diagnostic Radiologist [email or web address] WANDA/sanya segundo/Dictated by: Harvey Hoover MD @ 11/01/2024 9:56:00 AM (Electronically Signed)
== END 2024-11-01 08:24 | disposition home or self-care (01) ==
LOC: US 08:23
PROVIDERS: PCP Orthopaedic Surgery; Visit Provider Advanced Practice Midwife
DX: O10.913 Unspecified pre-existing hypertension complicating pregnancy, third trimester (principal); Z3A.38 38 weeks gestation of pregnancy
CPT/HCPCS: 76819

== ENCOUNTER 2024-11-01 09:52 | Inpatient (IN) | payer OTHER, SELFPAY ==
[2024-11-01] VITALS (22 sets, daily range): BP systolic 105–140; BP diastolic 55–86; PULSE 58–86; RESP 16–20; TEMP 36.2–36.7; O2SAT 98–100; BMI 33.2
--- NOTE | 2024-11-01 10:41 | W.PM.LDBA ---
Subjective History of Present Illness Date Seen: 11/01/24 Narrative: Patient is being admitted to Labor and Delivery for repeat . She is a 39 year old at 38 weeks, 6 days gestation. She now has chronic HTN with likely superimposed preeclampsia based on newly elevated transaminases this morning. She is currently taking nifedipine ER 30 mg BID. Her full history and physical was dictated on 10/18. Please see this for details. Specific Issues/Plans Partner: Cruz her two children age 8 and 3 are still in [facility], she recently immigrated H&P:?10/18/24 # Chronic HTN ? On nifedipine 20 mg daily at [facility]- order sent for 30mg daily per CGM Baseline EKG at [facility] Pre-labs: BUN 4, Creat 0.4, AST 18, ALT 10. 24hr Urine protein: 576 mg. Nephrology consult: Declined Recommended MFM consult and level II US-order placed Growth every 4 weeks starting at 28 weeks Weekly BPP beginning 32 weeks and preE labs: scheduled Delivery 37-39 weeks # Slight Transaminitis and rising Cr on 09/20 - AST 40 on 09/20 and Cr of 0.7 (baseline 0.4) -AST 33 (normal) on 09/25 # Proteinuria - See above - UPCR 0.84 (from 0.51 and 0.38) -. - 24 hour urine on 09/25 -P/CR 0.50 [x] 10/17 24 hour urine: stable at 506 - NO superimposed #Gestational thrombocytopenia - Plt 136 on 08/23 - Plt 136 on 09/20 - Plt 124 on 10/18 #? Hx C/S last for breech? Desires repeat - now considering TOLAC. success of 70.3%. Consult counseling completed on 10/04, but patient still undecided. Consent NOT yet signed. Need to establish definitive plan of care at next visit.- decided for repeat delivery #? AMA >35yr recommended level II US for 20 week US Genetic screening drawn #Right ovarian cyst vs CL 4.8 X 4.2 x 4.9 cm ?#Positive carrier screening for Alpha-Thalasemia, low risk fetus pt and stated they were already aware of this and FOB has been tested and is not a carrier offered genetic counseling referral-declined # inverted nipples consult ordered 09/06/24 #Anemia - Hgb has varied from 9.9 - 10.6 on weekly preE labs - On oral iron supplement - Declined IV iron due to interval improvement in Hgb on 10/04 > strongly encouraged on 10/18 and she is now agreeable - task sent to triage to coordinate josh Imaging:??? 06/14/2024: Level 2. 18 weeks, 6 days. Posterior placenta without previa. Three-vessel cord. MVP 4.8 cm. EFW 46%, AC 61%. Two small anterior uterine fibroids, 2.3 and 1.8 cm in greatest dimension. Growth ultrasounds every 4 weeks beginning 28 weeks 08/23/2024 EFW 42%, BPD 43%, HC 52%, AC 65%, FL 11%, SDP 4.5 cm, vertex 09/20: EFW 1965g at 27%ile, AC 52%ile, FL <3%ile. 8/8 BPP. SDP 4.2cm. 09/25/24: BPP 8/8, SDP 4.5, Vertex, fundal placenta. 10/18: EFW 2779g at 28%ile, AC 49%ile, FL <3%ile. MVP 6.1cm. FHR 149bpm. 12/01 BPP. Vertex. Vaccinations:?? COVID: declined at [facility], ask again wanted to think about it. Declines 07/03/24 Flu: got this year? Tdap: 09/06/2024? RSV: n/a 32 week mental health: 09/20/24 HGB: 09/25/24 9.9 Last pap:? done at [facility] visit no prior testing done? OB - Problem Based A/P Additional Plan (1) Chronic hypertension in : Status: Acute (2) History of delivery affecting : Status: Acute (3) Preeclampsia: Status: Acute Delivery/Labor/Induction Plan Plan: Section OB Exam Physical Exam Vital signs: Pulse BP 80 139/86 11/01/24 10:34 11/01/24 10:34 Narrative: Physical exam: General: No acute distress Psych: Alert and oriented x3, full affect HEENT: Normocephalic, atraumatic Heart: Regular rate and rhythm, no murmur rub or gallop Lungs: Clear to auscultation bilaterally Abdomen: soft, nontender, gravid Lower extremities: No edema or erythema
[2024-11-01] MEDS: LACTATED RINGERS 1000 ML 1,000 ML 500 ML IV ×2 (10:56→12:45)
[2024-11-01] MEDS: CEFAZOLIN 2 GM INJ IVP (12:45)
--- NOTE | 2024-11-01 13:21 | P.ANES_ITS ---
Anesthesia Charges Start Date/Time Anesthesia Start Date: 11/01/24 Anesthesia Start Time: 12:28 Stop Date/Time Anesthesia Stop Date: 11/01/24 Anesthesia Stop Time: 13:52 Summary Emergency: ROULA Coding CPT Codes CPT Codes: ANESTH CS DELIVERY - 87879 ([id number]) P3 - PATIENT W/SEVERE SYS DISEASE, QK - BUSINESS OPERATIONS CONSULTANT 2-4 CNCRNT ANES PROC, QX - OPERATOR VACUUM SVC W/ MD MED DIRECTION Additional Codes: Summary - Emergency: ROULA ([id number])
--- NOTE | 2024-11-01 13:21 | W.ANESCHARGE ---
Anesthesia Charges Start Date/Time Anesthesia Start Date: 11/01/24 Anesthesia Start Time: 12:28 Stop Date/Time Anesthesia Stop Date: 11/01/24 Anesthesia Stop Time: 13:52 Summary Emergency: ROULA Coding CPT Codes CPT Codes: ANESTH CS DELIVERY - 46275 ([id number]) P3 - PATIENT W/SEVERE SYS DISEASE, QK - DIRECTOR PROCESS IMPROVEMENT 2-4 CNCRNT ANES PROC, QX - SUPERVISOR COUNSELING AND GUIDANCE SVC W/ MD MED DIRECTION Additional Codes: Summary - Emergency: ROULA ([id number])
--- NOTE | 2024-11-01 13:31 | PM.OBPRCCS ---
Procedure Date of procedure: 11/01/24 Pre-op diagnosis: Chronic hypertension with probable superimposed preeclampsia 38 weeks, 6 days gestation Previous Post-op diagnosis: same Procedure Done: Global Will [facility] bill your pro fee for this procedure?: Yes Blood Loss Measurement Type: QBL (410) Bakri Used: No IV fluids (mL): 1,500 Urine Output (mL): 100 Surgeon: Jami Wan MD Findings: 1. Male infant, cephalic lie, Apgars of 8 and 9, weight 2900 g, or 6 lb and 6 oz 2. Thinning of lower uterine segment with serosal adhesions to the bladder reflection. Omental adhesions to the peritoneum of the anterior abdominal wall. Otherwise normal appearance uterus, tubes and ovaries Procedure Name: Repeat delivery Procedure Description: Patient was taken to the operating room with IV running. She received cefazolin in preoperative prophylaxis. Spinal anesthesia was administered. Knapp catheter was inserted. She was prepped and draped in the usual sterile fashion. Anesthesia was tested and found to be adequate. A low-transverse skin incision was made with a scalpel and carried through to the underlying layer of fascia with the scalpel. The subcutaneous fat was dissected bluntly off the underlying fascia. The fascia was nicked in the midline with a scalpel, and this incision was extended laterally with scissors. The rectus muscles were in the midline with the help of scalpel and Bovie. Peritoneum was entered bluntly. Yuan O retractor was inserted and tightened down, providing excellent visualization of the lower uterine segment. The bladder reflection was advanced along the lower uterine segment. A bladder flap was created with a combination of sharp and blunt dissection. Low-transverse uterine incision was made with a scalpel. Incision was widened bluntly. The 's head was grasped through the hysterotomy and delivered with the help of fundal pressure. The remainder of the body delivered without incident. Cord was clamped and cut after 30 seconds. Infant was handed off to attending nurses. The placenta was delivered with gentle traction on the cord. The uterus was cleaned of all clots and debris with the dry lap pad. The hysterotomy was reapproximated with 0 Vicryl in a running, locked fashion. Second layer of the same suture was used in imbricating fashion to obtain hemostasis. The adnexa were examined and noted to be normal in appearance. The cul-de-sac and gutters were cleansed with dampened laparotomy sponge, removing any further clots and debris. The Yuan O retractor was removed. The hysterotomy was reexamined and found to be hemostatic. The peritoneum was reapproximated with 2 0 Vicryl in a running fashion. The rectus muscles were examined and found to be hemostatic. The fascia was reapproximated with 0 Vicryl in a running fashion. Subcutaneous fat was irrigated and Bovie used on oozing vessels. The skin was closed with a subcuticular stitch of 4-0 Vicryl. Surgical glue was applied above this. Patient tolerated procedure well was taken to recovery area in stable condition. Complications: None Pathology: specimen obtained, sent to pathology (Placenta) Surgery Debrief Performed: Yes Surgery Debrief Comment: Postoperative debrief was verbalized with OR staff, including a verification of pathology specimens to be sent as described above.
--- NOTE | 2024-11-01 13:58 | P.ANES_ITS ---
Anesthesia Charges Start Date/Time Anesthesia Start Date: 11/01/24 Anesthesia Start Time: 12:28 Stop Date/Time Anesthesia Stop Date: 11/01/24 Anesthesia Stop Time: 13:52 Summary Emergency: ROULA Coding CPT Codes CPT Codes: ANESTH CS DELIVERY - 65652 ([id number]) P3 - PATIENT W/SEVERE SYS DISEASE, QK - ASSURANCE SOURCING MANAGER 2-4 CNCRNT ANES PROC, QX - CAR SEAT COVERER SVC W/ MD MED DIRECTION Additional Codes: Summary - Emergency: ROULA ([id number])
--- NOTE | 2024-11-01 13:58 | W.ANESCHARGE ---
Anesthesia Charges Start Date/Time Anesthesia Start Date: 11/01/24 Anesthesia Start Time: 12:28 Stop Date/Time Anesthesia Stop Date: 11/01/24 Anesthesia Stop Time: 13:52 Summary Emergency: ROULA Coding CPT Codes CPT Codes: ANESTH CS DELIVERY - 82602 ([id number]) P3 - PATIENT W/SEVERE SYS DISEASE, QK - RN BIRTHING 2-4 CNCRNT ANES PROC, QX - PETROLEUM ANALYST SVC W/ MD MED DIRECTION Additional Codes: Summary - Emergency: ROULA ([id number])
--- NOTE | 2024-11-01 14:04 | W.PM.NB ---
Nerve Block Nerve Block Time Seen by Provider: 13:40 Date Seen: 11/01/24 Type of block requested by surgeon for post-operative analgesia: TAP Side: bilateral Time out performed: Yes Verification of patient name: Yes Verification of date of : Yes Site marking: site marked Name of person performing procedure: Landry Continuous monitoring Was continuous monitoring of O2 sat, B/P, cardiac cath lab radiology technologist, recorded every 15 minutes?: Yes Procedure Checklist: sterile prep, needles and gloves Ultrasound guided. Images saved: Yes Medications given in 5ml increments after negative aspiration: Marcaine %: 0.25 mL: 30 Needle gauge: 20 and Exparel mL: 10 Patient tolerated procedure well: Yes Additional comments: Needle noted between internal oblique and transversus abdominus. Local spread visualized Block Charges Block Charge (with Pro Fee): TAP Bilateral Use of Ultrasound Machine for Block: Yes- US Guidance/pain block
[2024-11-02 01:49] VITALS: BP 124/84; PULSE 68; RESP 18; TEMP 36.7; O2SAT 99
[2024-11-02 06:01] VITALS: BP 135/83; PULSE 68; RESP 18; TEMP 36.5; O2SAT 100
[2024-11-02 06:45] LABS: Hematocrit 33.9 % (33.0-51.0); Hemoglobin* 10.8 gm/dL (12.0-16.0); Immature Granulocytes Abs Auto 0.10 K/uL (0.00-0.30); Immature Granulocytes Pct Auto 0.8 %; Mean Corpuscular HGB Conc 32 gm/dL (32-36); Mean Corpuscular Hemoglobin 27 pg (26-34); Mean Corpuscular Volume 85 fL (80-100); RDW Coefficient of Variation % 14.0 % (11.5-15.5); Red Blood Count 3.97 m/uL (4.00-5.20); White Blood Count* 12.36 K/uL (4.50-11.00)
[2024-11-02 06:53] LABS: Alanine Aminotransferase* 57 U/L (4-35); Aspartate Amino Transferase* 61 U/L (12-35); Blood Urea Nitrogen* 9 mg/dL (5-24); Creatinine* 0.7 mg/dL (0.5-1.5); Est. Creatinine Clearance* 83.03; Estimated Glomerular Filt Rate 114 ml/min
[2024-11-02 06:57] LABS: Lymphocytes Absolute Auto 1.60 K/uL (0.90-2.90); Slide Review Reflex No
[2024-11-02 08:00] VITALS: BP 120/71; PULSE 91; RESP 16; TEMP 36.6; O2SAT 100
--- NOTE | 2024-11-02 10:24 | P.OBPN_ITS ---
OB - PN:Subj Subjective Date Seen: 11/02/24 Narrative: Diana is a 39 y.o. G 4 P 3 who was admitted to L & D for CHTN with superimposed pre-eclampsia without SF. ?She had a section that was uncomplicated. The patient feels well. ?The pain is well controlled with current medications. ?She has no new complaints. ?She is breast feeding and reports things are not going very well, she desires to see today. the patient has done well.? Vitals have been stable. She was started on nifedipine ER 30 mg BID.? She has remained afebrile.? Has a good appetite, is tolerating a general diet. ?She is voiding without difficulty.? She is passing gas and has not had a bowel movement.? She is ambulating and denies any dizziness.? Has small amount of rubra lochia. Problems: none OB - PN: Obj Exam Physical Exam: Vital signs: Temp Pulse Resp BP Pulse Ox O2 Del Method 97.8 F 91 16 120/71 100 Room Air 11/02/24 08:00 11/02/24 08:00 11/02/24 08:00 11/02/24 08:00 11/02/24 08:00 11/02/24 08:00 Narrative: GENERAL APPEARANCE:? normal affect, alert, no distress MOOD:? appropriate CHEST:? clear to auscultation HEART:? regular rate and rhythm ABDOMEN:? soft, non-tender the uterine fundus is At Umbilicus, Midline and is a ppropriate for the stage of recovery. EXTREMITIES:? normal and no edema INCISION: Dressing in place; clean, dry, and intact OB - PN: Obj Data Labs Labs: Laboratory Results - last 24 hr 11/01/24 11/02/24 10:51 05:52 WBC 12.36 H RBC 3.97 L Hgb 10.8 L Hct 33.9 MCV 85 MCH 27 MCHC 32 RDW Coeff of Kumar 14.0 Plt Count 158 Neut % (Auto) 76.1 H Lymph % (Auto) 13.2 L [place] % (Auto) 9.5 Eos % (Auto) 0.2 Baso % (Auto) 0.2 Neut # (Auto) 9.40 H Lymph # (Auto) 1.60 [place] # (Auto) 1.20 H Eos # (Auto) 0.00 Baso # (Auto) 0.00 Abs Immat Gran (auto) 0.10 Imm/Tot Granulo (auto) 0.8 BUN 9 Creatinine 0.7 Estimated Creat Clear 83.03 Estimated GFR 114 AST 61 H ALT 57 H Blood Type A Positive Antibody Screen NEGATIVE OB - PN: A/P Delivery Assessment and Plan (1) care and examination immediately after delivery: Status: Acute (2) Chronic hypertension in : Status: Acute (3) Preeclampsia: Status: Acute (4) Lactating mother: Status: Acute Plan Comments: Routine post-op care , may see if needed? Hgb 10.8. ? CHTN with Super-imposed Pre-e Labs WNL Continue to monitor BP's
[2024-11-02 11:30] VITALS: BP 110/71; PULSE 91; RESP 16; TEMP 36.7; O2SAT 100
[2024-11-02 16:17] VITALS: BP 112/74; PULSE 75; RESP 16; TEMP 37; O2SAT 100
[2024-11-02 20:27] VITALS: BP 122/80; PULSE 80; RESP 16; TEMP 37.1; O2SAT 98
[2024-11-02 23:09] LABS: Hematocrit 30.8 % (33.0-51.0); Hemoglobin* 9.7 gm/dL (12.0-16.0); Mean Corpuscular HGB Conc 32 gm/dL (32-36); Mean Corpuscular Hemoglobin 27 pg (26-34); Mean Corpuscular Volume 85 fL (80-100); Red Blood Count 3.62 m/uL (4.00-5.20); White Blood Count* 8.68 K/uL (4.50-11.00)
[2024-11-02 23:16] LABS: Slide Review Reflex No
[2024-11-02 23:41] LABS: Alanine Aminotransferase* 58 U/L (4-35); Aspartate Amino Transferase* 63 U/L (12-35); Blood Urea Nitrogen* 15 mg/dL (5-24); Creatinine* 0.9 mg/dL (0.5-1.5); Est. Creatinine Clearance* 64.58; Estimated Glomerular Filt Rate 84 ml/min
[2024-11-03 00:49] VITALS: BP 106/70; PULSE 79; RESP 16; O2SAT 99
[2024-11-03 04:28] VITALS: BP 115/72; PULSE 90; RESP 20; TEMP 36.6; O2SAT 100
[2024-11-03 05:23] LABS: Hematocrit 30.4 % (33.0-51.0); Hemoglobin* 9.6 gm/dL (12.0-16.0); Mean Corpuscular HGB Conc 32 gm/dL (32-36); Mean Corpuscular Hemoglobin 27 pg (26-34); Mean Corpuscular Volume 85 fL (80-100); Red Blood Count 3.58 m/uL (4.00-5.20); White Blood Count* 7.42 K/uL (4.50-11.00)
[2024-11-03 05:28] LABS: Slide Review Reflex No
[2024-11-03 05:38] LABS: Alanine Aminotransferase* 52 U/L (4-35); Aspartate Amino Transferase* 47 U/L (12-35); Blood Urea Nitrogen* 14 mg/dL (5-24); Creatinine* 0.8 mg/dL (0.5-1.5); Est. Creatinine Clearance* 72.65; Estimated Glomerular Filt Rate 97 ml/min
[2024-11-03] MEDS: FERROUS SULFATE 325 MG TABLET PO (08:24)
[2024-11-03] MEDS: IBUPROFEN 600 MG TABLET PO (08:24)
[2024-11-03 08:45] VITALS: BP 124/86; PULSE 80; RESP 18; TEMP 36.7; O2SAT 100
--- NOTE | 2024-11-03 10:18 | P.DS_ITS ---
DS: Providers Provider Date Seen: 11/03/24 Date of admission: 11/01/24 09:52 Primary care physician: Kasandra Brooks MD Admitting Clinician: Jami Wan MD Attending Physician on discharge: Jami Wan MD Date of Discharge: 11/03/24 DS: Diagnosis Discharge Diagnosis (1) care and examination immediately after delivery: Status: Acute (2) S/P section: Status: Acute (3) Chronic hypertension in : Status: Acute Exam Narrative: Exam Narrative: GENERAL APPEARANCE:? normal affect, alert, no distress? MOOD:? appropriate? CHEST:? clear to auscultation and percussion? HEART:? regular rate and rhythm? BREASTS: soft, nontender, no erythema, nipples intact? ABDOMEN:? soft, non-tender the uterine fundus is firm and is appropriate for the stage of recovery. Incision dressing C/D/I.? EXTREMITIES:? normal and no edema? Const: Vital Signs, click to edit/add: Vital Signs - 24 hr 11/02/24 11:30 11/02/24 16:17 11/02/24 20:27 Temperature 98.0 F 98.6 F 98.7 F Pulse Rate [Pulse Oximeter] 91 75 80 Respiratory Rate 16 16 16 Blood Pressure [Ri ght Arm] 110/71 112/74 122/80 Pulse Oximetry 100 100 98 Oxygen Delivery Me thod Room Air Room Air Room Air 11/03/24 00:49 11/03/24 04:28 11/03/24 08:45 Temperature 97.8 F 98.0 F Pulse Rate [Pulse Oximeter] 79 90 80 Respiratory Rate 16 20 18 Blood Pressure [Ri ght Arm] 106/70 115/72 124/86 Pulse Oximetry 99 100 100 Oxygen Delivery Me thod Room Air Room Air Room Air OB - DS: Summary Hospital Course Hospital Course: The patient is a 39 year old G 4 P 3013 at 38+6 weeks gestation that was admitted to the Center on 11/01/24 for repeat C/section. She had an uncomplicated delivery. She delivered a viable male . She is attempting but primarily bottle feeding. the patient has done well. Peripartum Data Infant delivery method: Repeat Section Procedures: Procedures Operation Date: 11/01/24 12:00 <No data on this case meets the specified criteria> Operation Date: 11/01/24 12:00 Actual Procedure Side Surgeon p Section Not Applicable Jami Wan MD complications: none Gender: Male Infant Discharge Plan: Home Status at Discharge Functional status at discharge: independent ambulation Overall status at discharge: patient is progressing back to baseline Time Spent with Patient Time attestation: Total time spent providing and/or coordinating discharge services: Time spent: Less than 30 minutes Discharge Plan Discharge Disposition: Home, Self-Care Date of Admission: 11/01/24 09:52 Attending Provider on Discharge: Tara Perez Primary Care Provider: Kasandra Brooks Condition: Stable Anticipated Discharge Date/Time: 11/03/24 10:19 Discharge Medications: New acetaminophen 500 mg Tablet 1,000 mg PO Q6H PRN (Reason: Pain) Qty: 100 0RF docusate sodium 100 mg Capsule 100 mg PO DAILY MDD 2 tabs Qty: 30 0RF ferrous sulfate 325 mg (65 mg iron) Tablet 325 mg PO Q48H Qty: 60 0RF Rx Instructions: Take with orange juice or vitamin C to improve absorption ibuprofen 600 mg Tablet 600 mg PO Q6H PRN (Reason: Pain) Qty: 100 0RF Continued prenat.vits,autumn,wli-eccq-dphik Tablet 1 tab PO DAILY nifedipine 30 mg tablet extended release 30 mg PO BID Qty: 180 0RF Discontinued aspirin 81 mg tablet,delayed release (DR/EC) 81 mg PO QDAY No Action oxycodone 5 mg tablet 5 - 10 mg PO Q4H PRN (Reason: Pain) Qty: 14 0RF Discharge Orders: Discharge Order (Routine); Ordered 11/03/24 Ordered By: Tara Perez Consulting provider completed their portion of the discharge: Yes Patient Education: Preeclampsia and Eclampsia After Delivery (GEN), OB /Bottle Feeding Additional Instructions: Discharge instructions were reviewed with the patient including signs and symptoms of infection and home going medications Lifting Restrictions: 20 pounds for 6 weeks No not submerge incision under water X 2 weeks? Nothing vaginally for 6 weeks: no tampons or intercourse Do not drive while taking narcotic pain medication(s) Off Work or School for 8 weeks Symptoms to report to doctor: * Bleeding that saturates more than one pad per hour * Passing clots larger than the size of a golf ball * Pain not relieved by prescribed medication * Fever above 100.4 degrees Fahrenheit * A foul vaginal odor * Difficulty in emotions, mood, and functions * Thoughts of hurting yourself and/or * Painful, reddened area in your breast * Any drainage, redness, or tenderness in your IV/epidural site * Severe headache that doesn't improve after taking medications * Changes in vision, including temporary loss of vision, blurred vision, and/or light sensitivity * Upper abdominal pain (usually under ribs on the right side) * Decrease in urination or painful, frequent urinating * Chest pain * Shortness of breath * Tenderness or pain with redness and/swelling in the calf(s) of your leg [facility] for a BP check?[fill in date] Call with BP greater than or equal to 160/110 2-week visit: incision check, discuss infant feeding concerns, review control options and screen for anxiety/depression. 6-week visit for an annual exam. consultation services are available to all mothers and babies for the first year after delivery.? To make an appointment, please call [phone]. Activity Level: No strenuous activity, Light activity and Other Activity Detail: no more than 20 pounds lifting for 6 weeks Discharge Diet: Regular Follow Up Appointments: Kasandra Brooks MD [Primary Care Provider, Orthopedics] Forms: MyHealth Info Instructions
[2024-11-03 11:09] LABS: Hematocrit 34.3 % (33.0-51.0); Hemoglobin* 10.8 gm/dL (12.0-16.0); Mean Corpuscular HGB Conc 32 gm/dL (32-36); Mean Corpuscular Hemoglobin 27 pg (26-34); Mean Corpuscular Volume 86 fL (80-100); Red Blood Count 4.01 m/uL (4.00-5.20); White Blood Count* 7.49 K/uL (4.50-11.00)
[2024-11-03 11:11] LABS: Slide Review Reflex No
[2024-11-03 11:26] LABS: Alanine Aminotransferase* 64 U/L (4-35); Aspartate Amino Transferase* 55 U/L (12-35); Blood Urea Nitrogen* 14 mg/dL (5-24); Creatinine* 0.7 mg/dL (0.5-1.5); Est. Creatinine Clearance* 83.03; Estimated Glomerular Filt Rate 114 ml/min
== END 2024-11-03 12:45 | disposition home or self-care (01) | DRG 787 ==
PROVIDERS: Obstetrics & Gynecology; Admitting Provider Obstetrics & Gynecology; PCP Orthopaedic Surgery; Visit Provider Obstetrics & Gynecology
PROC: 10D00Z1 Extraction of Products of Conception, Low, Open Approach (ICD-10-PCS; CPT 59514; principal; 2024-11-01 12:00)
DX: O34.211 Maternal care for low transverse scar from previous cesarean delivery (principal); O11.4 Pre-existing hypertension with pre-eclampsia, complicating childbirth; O10.92 Unspecified pre-existing hypertension complicating childbirth; D62 Acute posthemorrhagic anemia; O99.02 Anemia complicating childbirth; G89.18 Other acute postprocedural pain; O99.12 Other diseases of the blood and blood-forming organs and certain disorders involving the immune mechanism complicating childbirth; D69.6 Thrombocytopenia, unspecified; Z3A.38 38 weeks gestation of pregnancy; Z37.0 Single live birth
CPT/HCPCS: 01961; 36415; 51798; 64488; 76942; 82565; 83735; 84450; 84460; 84520; 85025; 85027; 86592; 86850; 86900; 86901; 88307; 99140; A4314; A9270; J0665; J0666; J0690; J1100; J1885; J2274; J2371; J2405; J2590; J3010; J7120